=== PATIENT | male | born 1955 | race Caucasian/White ===

== ENCOUNTER 2016-07-22 18:21 | Observation (INO) | payer OTHER ==
--- NOTE | ~2016-07-22 | HP ---
History And Physical [facility] [address] [place]. [address] NAME: MISTY DAVENPORT : 59 STATUS : ADM Dee PAT#: [id number] AGE: 61 ADM/REG DATE : 07/22/16 MR#: [id number] REPORT SERV DATE: 07/23/16 DICTATED BY: JOSE ROLLINS DATE: 07/22/16 REPORT STATUS : Draft TRANSCRIBED BY: MODVanita DATE: 07/22/16 DATE OF ADMISSION: 07/22/2016 POINT OF ENTRY: [facility] Emergency Department. PRIMARY CARE PHYSICIAN: Unknown at this time. PRIMARY DIAL BUFFER: Formerly Dr. Mcgraw. CHIEF COMPLAINT: Dizziness, chest pain, possible syncope. HISTORY OF PRESENT ILLNESS: Mr. Davenport is a 61-year-old gentleman with a history of chronic systolic congestive heart failure with ejection fraction of 35% as well as insulin-dependent diabetes mellitus type 2, coronary artery disease with prior coronary artery bypass grafting, as well as history of left cerebellar cerebrovascular accident who presents to the emergency department today with multiple complaints including chronic dizziness with a recent fall with resulting left-sided shoulder and chest pain. The patient was recently admitted to the Hospitalist Service in the beginning of June for acute CHF exacerbation. At that time, the patient also was reporting some ataxia and MRI of the brain during that admission reportedly showed single punctate focus of restricted diffusion in the right posterior temporal lobe consisted of tiny infarct of four to five millimeter which appear acute. The patient states that during that admission he started to complain to his medical staff of dizziness primarily upon standing as well as with various movements including rolling over in bed. Upon discharge, the patient reports that he has continued to have this episodic periods of dizziness sometimes associated with gait abnormality as well as nausea and vomiting. This morning he awoke, continued to have dizziness, but also experienced the acute onset of left-sided sharp stabbing chest pain. He attempted to stand up. The dizziness became worse, and he fell into a door, striking his left shoulder which he states is a chronically frozen shoulder. He is unclear as to whether or not he passed out, but he thinks that he did. The patient followup with Dr. Mcgraw; however, he tells me that Dr. Mcgraw is now left the practice and he is now in [place]. He is unsure of who is following up with next. His last echocardiogram showed ejection fraction of 35% in June. He states that his last stress test was probably six to seven months ago at [facility] which reportedly was normal at that time, Initial evaluation in the emergency department notable for a blood pressure initially at 190/144, troponin is 0.05. EKG is nonischemic. Labs notable for a blood sugar of 403. Chest x-ray is clear. CT scan of the brain is unremarkable. The patient was given 2 mg of IV Dilaudid for the patient's reports of left shoulder and chest pain in addition to History And Physical [address] [address] NAME: MISTY DAVENPORT : 59 STATUS : ADM Dee PAT#: [id number] AGE: 61 ADM/REG DATE : 07/22/16 MR#: [id number] REPORT SERV DATE: 07/23/16 DICTATED BY: JOSE ROLLINS DATE: 07/22/16 REPORT STATUS : Draft TRANSCRIBED BY: BERNARD DATE: 07/22/16 clonidine and hydralazine for his elevated blood pressure. The patient was subsequently admitted to the Hospitalist Service for further evaluation and management. REVIEW OF SYSTEMS: Comprehensive review of systems otherwise negative unless listed in history of present illness. PREVIOUS MEDICAL HISTORY: 1. Chronic systolic congestive heart failure with an ejection fraction of 35%. 2. Coronary artery disease with prior coronary artery bypass grafting. 3. Uncontrolled insulin-dependent diabetes mellitus, type 2. 4. History of DVT, PE, on Xarelto. 5. History of left cerebrovascular accident. 6. History of peripheral artery disease, status post thrombectomy. 7. Hypertension. 8. Hyperlipidemia. PAST SURGICAL HISTORY: 1. Coronary artery bypass grafting. 2. Left big toe amputation. 3. Peripheral arterial thrombectomy. ALLERGIES: 1. NITROGLYCERIN. 2. MORPHINE. 3. TRAMADOL. 4. GABAPENTIN. HOME MEDICATIONS: 1. Norvasc 10 mg daily. 2. Aspirin 325 mg daily. 3. Lipitor 20 mg daily. 4. Klonopin 0.5 mg at bedtime. 5. Hydrochlorothiazide 25 mg daily. 6. Salol 10/325 one tab daily. 7. Lantus 15 units at bedtime. 8. Insulin sliding scale. 9. Lisinopril 40 mg daily. 10.Lopressor 50 mg b.i.d. 11.Naproxen 220 mg daily p.r.n. 12.Xarelto 20 mg daily. 13.Demadex 20 mg b.i.d. SOCIAL HISTORY: Denies any tobacco, alcohol, or illicits. FAMILY MEDICAL HISTORY: Parents both had coronary artery disease as well as diabetes. History And Physical [address] [place]. [address] NAME: MISTY DAVENPORT : 59 STATUS : ADM Dee PAT#: [id number] AGE: 61 ADM/REG DATE : 07/22/16 MR#: [id number] REPORT SERV DATE: 07/23/16 DICTATED BY: JOSE ROLLINS DATE: 07/22/16 REPORT STATUS : Draft TRANSCRIBED BY: BERNARD DATE: 07/22/16 LABS AND IMAGIN. White count is 8.5, hemoglobin is 15.4, hematocrit is 48.3, and platelet count is 246. 2. Sodium is 140, potassium 3.6, chloride 101, carbon dioxide 26, BUN 14, creatinine 1.35, glucose is 403, calcium is 8.2, magnesium is 1.9. 3. Troponin is 0.05. 4. EKG per my review shows normal sinus rhythm with some left axis deviation as well as some lateral T-wave flattening which is unchanged compared to prior EKGs. 5. Chest x-ray per my review shows no acute cardiopulmonary abnormality. No evidence of any intravascular volume overload at this time. 6. CT scan of the brain shows no acute intracranial pathology shows an old cerebrovascular accident in the left cerebellar region with associated encephalomalacia. PHYSICAL EXAMINATION: VITAL SIGNS: Blood pressure is 190/144, temperature is 98 degrees Fahrenheit, pulse is 98, respiratory rate is 24, saturating 97% on room air. On recheck, it is now 169/94. GENERAL: The patient is awake, alert, in no acute distress. Resting comfortably in bed. He is a well-developed, well-nourished, male. HEENT: Atraumatic and normocephalic. Moist mucous membranes. Pupils are equal, round, reactive to light and accommodation. Extraocular eye movements are intact. There is some very mild lateral gaze deviation and nystagmus. NECK: No jugular venous distention. No carotid bruits. CARDIAC: Regular rate and rhythm. No murmurs, rubs, or gallops. Normal S1, S2. LUNGS: Clear to auscultation bilaterally. No wheezes, rhonchi, or crackles. ABDOMEN: Soft, nontender, nondistended with good bowel sounds. No rebound, guarding, or rigidity. EXTREMITIES: Warm and well perfused. No cyanosis, clubbing, or edema. SKIN: Warm and dry. PSYCH: Affect appropriate. NEURO: Alert and oriented x3. Cranial nerves II through XII are grossly intact. Speech is normal. Gait is not assessed. MUSCULOSKELETAL: Does have some tenderness on palpation over the left anterior chest as well as left anterior and lateral shoulder regions. ASSESSMENT AND PLAN: Mr. Davenport is a 61-year-old gentleman, who presents with multiple complaints including chronic dizziness which sounds to be either central or peripheral vertigo as well as reports of chest and shoulder pain. PROBLEM LIST: 1. Dizziness, likely central versus peripheral vertigo. 2. Hypertensive urgency. 3. Chest pain. 4. Left shoulder pain. 5. Uncontrolled insulin-dependent diabetes mellitus, type 2 with hyperglycemia. 6. Chronic systolic congestive heart failure fracture with ejection fraction of 35%. PLAN: 1. Dizziness. The patient's description of dizziness appears to be vertigo based on his History And Physical [address] [address] NAME: MISTY DAVENPORT : 59 STATUS : ADM Dee PAT#: [id number] AGE: 61 ADM/REG DATE : 07/22/16 MR#: [id number] REPORT SERV DATE: 07/23/16 DICTATED BY: JOSE ROLLINS DATE: 07/22/16 REPORT STATUS : Draft TRANSCRIBED BY: MODVanita DATE: 07/22/16 descriptions. Given his history of cerebellar infarct, this could be central versus possible peripheral in etiology. However, given his recent acute temporal cerebrovascular accident in June as well as multiple vascular risk factors, I will schedule him for an MRI to evaluate for any potential new cerebrovascular accidents, however, these symptoms have been ongoing now for almost greater than 30 days. 2. Hypertensive urgency. Continue the patient's home medication, IV hydralazine p.r.n., as well as pain control. 3. Uncontrolled insulin-dependent diabetes mellitus, type 2 with hyperglycemia. Continue the patient's home long-acting insulin. Place him on level 3 insulin sliding scale. Check hemoglobin A1c. He has received some IV insulin here in the emergency room to correct his hyperglycemia. 4. Chest pain, unclear etiology. It sounds atypical in nature, especially since it is reproducible on palpation of the left anterior chest. Given his risk factors and history, we will trend out cardiac enzymes and schedule him for a stress test as it appears it has been at least greater than six months since his last stress test. 5. Chronic systolic congestive heart failure with an ejection fraction of 35%. The patient currently appears euvolemic at this time. We will continue patient's home Demadex, followup BNP. 6. Left shoulder and chest pain. This appears to be musculoskeletal in etiology as well as based on examination, we will check an x-ray of the left shoulder given his reports of pain as well as recent trauma to the area. 7. DVT prophylaxis. The patient is on Xarelto. CODE STATUS: The patient wished to be full code. JCB/MODL Jose Rollins MD / [id number] CC: Mele Gomes MD
--- NOTE | ~2016-07-22 | CN ---
Consultation Report [facility] [address] [place]. [address] NAME: MISTY PAREDES : 59 STATUS : ADM Dee PAT#: [id number] AGE: 61 ADM/REG DATE : 07/22/16 MR#: [id number] REPORT SERV DATE: 07/23/16 DICTATED BY: MARIALUISA SMITH JR. DATE: 07/23/16 REPORT STATUS : Draft TRANSCRIBED BY: MODL DATE: 07/23/16 CONSULTATION DATE OF CONSULTATION: 07/23/2016 REFERRING PHYSICAN: Una Andrea. CHIEF COMPLAINT: Dizziness, chest pain. HISTORY OF PRESENT ILLNESS: The patient is a 61-year-old white male, patient of Dr. Alexys Mcgraw, with history of known epicardial coronary artery disease status post prior CAB approximately one year ago with known LV systolic dysfunction and diastolic dysfunction, chronic; ejection fraction of approximately 40-45% with mild mitral insufficiency, mild mitral stenosis and mildly elevated pulmonary pressures, who also has known lypb-ez-kupjxiah orthostatic hypertension and had been well until yesterday when he awoke from sleep with mid substernal chest pain and abrupt onset dizziness, worse when rolling from one side of the bed to the other. He abruptly sit up and then passed out striking his left shoulder on furniture. REVIEW OF SYSTEMS: A 10-point review of systems is otherwise unremarkable for recent fevers, chills, nausea, vomiting, GI or complaints, loose stools, melena, hematochezia, etc. Troponin serum markers have been borderline. ALLERGIES: MORPHINE, TRAMADOL, AND GABAPENTIN. MEDICATIONS: Include amlodipine 10 mg daily, aspirin 325 mg daily, atorvastatin 20 mg at bedtime, Klonopin 0.5 mg at bedtime, hydrochlorothiazide 25 mg daily, [place] 10/325 combination p.r.n. pain, insulin glargine and regular, lisinopril 40 mg daily, metoprolol tartrate 50 mg b.i.d., Aleve 220 mg daily as needed, Rivaroxaban 20 mg daily, torsemide 20 mg twice daily. PAST MEDICAL HISTORY: Notable for history of known epicardial coronary artery disease, prior CVA, prior TIA, hypertension, hyperlipidemia, obesity, chronic systolic and diastolic heart failure, history of peripheral artery disease, osteomyelitis of the left big toe. PAST SURGICAL HISTORY: Notable for prior CAB with four-vessel in October 2014, left big toe amputation, stent right leg in 2014. SOCIAL HISTORY: Notable for absent current tobacco or ethanol abuse, although he has smoked in the past. FAMILY HISTORY: Notable for heart disease. Consultation Report [facility] [address] [place]. [address] NAME: MISTY PAREDES : 59 STATUS : ADM Dee PAT#: [id number] AGE: 61 ADM/REG DATE : 07/22/16 MR#: [id number] REPORT SERV DATE: 07/23/16 DICTATED BY: MARIALUISA SMITH JR. DATE: 07/23/16 REPORT STATUS : Draft TRANSCRIBED BY: BERNARD DATE: 07/23/16 PHYSICAL EXAMINATION: VITAL SIGNS: Blood pressure is 160/80, pulse is 72 and regular, respirations 14. The patient is afebrile. HEENT: Unremarkable. NECK: Supple. Jugular venous pressures are mildly elevated. CARDIOVASCULAR: Regular rate and rhythm. S4. No S3. 1/6 holosystolic murmur. LUNGS: Clear anteriorly, diminished in the bases posteriorly. ABDOMEN: Soft. Normoactive bowel sounds. Obese. EXTREMITIES: 1+ with no pedal edema. NEUROLOGIC: He is grossly intact. LABORATORY DATA: EKG is notable for sinus rhythm, ventricular rate of 75 beats per minute with LVH, poor R-wave progression, cannot exclude old anterior TN, age undetermined, left anterior fascicular block. No acute ischemic changes with only nonspecific ST changes noted laterally. Troponin 0.05. Repeat troponin 0.06. MRI of the head and neck pending. Sodium 140, potassium 3.6, chloride 101, CO2 of 26, BUN 14, creatinine 1.35, glucose of 103. H and H of 15.4 and 40.3, white count of 8.5, platelet count of 246,000. INR of 1. BNP of 533. IMPRESSION: 1. A 61-year-old white male, patient of [facility] with 24-hour history of dizziness, orthostasis and mid sternal chest pain which is now resolved with episodes of nausea and vomiting after intravenous contrast following MRI of the head earlier this morning. 2. Uncontrolled diabetes mellitus. 3. Known mild LV systolic dysfunction with ejection fraction as above with mitral valvular disease and mildly elevated pulmonary pressures. 4. Atherosclerotic cerebrovascular disease with prior cerebrovascular accident. 5. Wpgs-jw-jtfrztwt chronic kidney disease. 6. Borderline troponin of unknown significance with only chronic ECG changes. PLAN/RECOMMENDATIONS: 1. MRI of the brain pending. 2. Nuclear stress testing in a.m. 3. Noted VINNY inhibition on hold. Diuretics on hold. 4. Agree with H2 blockers versus PPI. 5. We will follow. Nitrate allergy noted, we would suggest Ranexa. /MODL Marialuisa Smith Jr., M.D. / [id number] Consultation Report [address] [address] NAME: MSITY PAREDES EDHONEY : 59 STATUS : ADM Dee PAT#: [id number] AGE: 61 ADM/REG DATE : 07/22/16 MR#: [id number] REPORT SERV DATE: 07/23/16 DICTATED BY: MARIALUISA SMITH JR. DATE: 07/23/16 REPORT STATUS : Draft TRANSCRIBED BY: BERNARD DATE: 07/23/16 CC: MD Zully Murphy Amanda M
--- NOTE | ~2016-07-22 | DS ---
Discharge Summary [facility] [address] [place]. [address] NAME: MISTY PAREDES : 59 STATUS : DIS Dee PAT#: [id number] AGE: 61 ADM/REG DATE : 07/22/16 MR#: [id number] REPORT SERV DATE: 07/26/16 DICTATED BY: ZEKE MARIANO DATE: 07/25/16 REPORT STATUS : Draft TRANSCRIBED BY: BERNARD DATE: 07/25/16 ADMISSION DATE: 07/22/2016 DISCHARGE DATE: 07/25/2016 DISCHARGE DIAGNOSES: 1. Dizziness secondary to dehydration. 2. Ysy-RZ-itjnmyg elevation myocardial infarction type 2. 3. Hypertension. 4. Chronic systolic heart failure. 5. Coronary artery disease, history of CABG. 6. History of deep vein thrombosis/pulmonary embolus on Xarelto. 7. History of cerebrovascular accident. 8. Hyperlipidemia. 9. Acute on chronic kidney disease stage 3. 10.Left shoulder pain. 11.Insulin-dependent diabetes type 2. DISCHARGE MEDICATIONS: Include: 1. Norvasc 10 mg p.o. daily. 2. Aspirin 325 mg p.o. daily. 3. Lipitor 80 mg p.o. at bedtime. 4. Pepcid 20 mg p.o. b.i.d. 5. Lidoderm 5% topical patch topical daily. 6. Ranexa 500 mg p.o. b.i.d. 7. Lopressor 50 mg p.o. b.i.d. 8. Xarelto 20 mg p.o. daily. 9. Klonopin 0.5 mg p.o. at bedtime. 10.Hydralazine 25 mg p.o. every eight hours p.r.n. systolic blood pressure greater than 170. 11.Levemir 15 units subcu b.i.d. 12.Insulin regular per sliding scale before lunch, breakfast, and supper. 13.[place]en 5/325 one tab p.o. every four hours p.r.n. 14.Demadex 20 mg p.o. b.i.d., restart on 07/27/2016. 15.Lisinopril 40 mg p.o. daily. 16.Hydrochlorothiazide 25 mg p.o. daily p.r.n. swelling. DISPOSITION AND FOLLOWUP: The patient is medically stable for discharge. FOLLOWUP: Follow up with primary care physician in one week. Follow up with Cardiology as directed. HISTORY AND PHYSICAL: Per initial assessment. DISCHARGE VITALS: Temperature 97.9, heart rate 72, blood pressure 118/58, respiratory rate 20, O2 saturation 95 on room air. Discharge Summary [facility] [address] [place]. [address] NAME: MISTY PAREDES : 59 STATUS : DIS Dee PAT#: [id number] AGE: 61 ADM/REG DATE : 07/22/16 MR#: [id number] REPORT SERV DATE: 07/26/16 DICTATED BY: ZEKE MARIANO DATE: 07/25/16 REPORT STATUS : Draft TRANSCRIBED BY: BERNARD DATE: 07/25/16 DISCHARGE LABS: WBC of 8.8, hemoglobin 13.1, hematocrit 38.3, platelets 236. Sodium 139, potassium 3.5, chloride 104, bicarb 27, BUN 27, creatinine 1.25, glucose 139. Troponin 0.05, next 0.06, next 0.04. Vitamin B12 of 267, folate 8.9. Recommend primary care physician to get a methylmalonic acid for further evaluation for true vitamin B12 deficiency. IMAGIN. CT of the head without contrast, impression:. a. No acute intracranial pathology identified. b. Very mild diffuse cerebral involutional changes. c. Encephalomalacia, inferior peripheral left cerebellar hemispheres consistent with old CVA. 2. Chest x-ray, impression, improved aeration at the lung bases compared to 06/24/2016. 3. MRA of the head, impression:. a. Encephalomalacia, left inferior cerebellum. No acute infarct or other acute finding demonstrated in the brain. b. 60% stenosis of the distal ICA in the cavernous portion. c. 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 d. Congenital variant small right A1 segment. Otherwise negative CTA of the po[place] of Mcgraw. Atherosclerotic irregularity of bilateral ICAs proximally without stenosis. 4. MRI of the brain, impression, no acute infarct. 5. Shoulder, left, x-ray, impression, degenerative changes. No acute abnormality. 6. Stress test, impression, imaging demonstrated inferior infarction without ischemia. Post infusion LVEF 43%. Overall intermediate risk vasodilatory stress test due to left ventricle dysfunction. No electrographic changes diagnostic of ischemia were noted. HOSPITAL COURSE: This is a 61-year-old man with past medical history of chronic systolic heart failure/ischemic cardiomyopathy, who comes into the ED complaining of dizziness. The patient was admitted for TIA-type symptoms and evaluation. Dizziness resolved during the course of the hospitalization. MRI of the head did not show any acute CVA. The patient was noted to have elevated troponins in the setting of uncontrolled hypertension and acute on chronic renal insufficiency. Consulted Cardiology for NSTEMI type 2. A stress test done as described above. The patient was placed on Ranexa and recommendations were for continued medical management. The patient to follow up with Dr. Smith in one week post hospitalization. The patient's statin was increased to 80 mg p.o. at bedtime. During the course of the hospitalization, held hydrochlorothiazide, Demadex, and VINNY inhibitor while patient was rehydrated very gently. Renal function back to baseline at discharge. The patient will be instructed to restart VINNY inhibitor and restart Demadex as directed. Can take hydrochlorothiazide p.r.n. swelling. The patient was continued on Xarelto throughout the course of the hospitalization. The patient will be discharged with p.o. hydralazine p.r.n. for systolic greater than 170. Can follow up with primary care physician in one week and re-titrate antihypertensive if needed. The patient was noted to have uncontrolled insulin diabetes on admission. Insulin was titrated and as described above, the patient will take Levemir, which was increased to b.i.d. instead of once daily. Continue further long-term care by primary care physician. On discharge, the patient is asymptomatic. Denies any chest pain, dizziness, shortness of breath. The patient wanted to go home. Discharge Summary [place] [id number] [facility] [place]. [address] NAME: MISTY PAREDES : 59 STATUS : DIS Dee PAT#: [id number] AGE: 61 ADM/REG DATE : 07/22/16 MR#: [id number] REPORT SERV DATE: 07/26/16 DICTATED BY: ZEKE MARIANO DATE: 07/25/16 REPORT STATUS : Draft TRANSCRIBED BY: MODL DATE: 07/25/16 Vitals stable. Instructed to take all medications as described above. Follow up with primary care physician in one week and Cardiology in one week as well. Further management at that time. Total time for discharge planning, 35 minutes. ANITHA/BERNARD Mele Gomes MD / [id number] CC: MD SWATI Murphy
[2016-07-22 17:04] LABS: BASOPHILS 0.2 %; BASOPHILS ABSOLUTE 0.02 10/3/uL (0.0-0.16); EOSINOPHILS 1.3 %; EOSINOPHILS ABSOLUTE 0.11 10/3/uL (0.0-0.53); ER CBC TAT 0 Hrs 08 Mins; HEMATOCRIT 48.3 % (40.0-51.0); HEMOGLOBIN 15.4 g/dL (13.6-17.8); IMMATURE GRANULOCYTES 0.2 %; IMMATURE GRANULOCYTES ABSOLUTE 0.02 10/3/uL (0.0-0.11); LYMPHOCYTES 21.5 %; LYMPHOCYTES ABSOLUTE 1.83 10/3/uL (0.67-4.30); MANUAL DIFF NO %; MEAN CORPUS HGB CONC 31.9 g/dL (32.0-36.0); MEAN CORPUSCULAR HEMOGLOB 30.3 pg (26.0-34.0); MEAN CORPUSCULAR VOLUME 94.9 fL (80-100); MEAN PLATELET VOLUME 12.5 fL (9.2-13.0); MONOCYTES 6.5 %; MONOCYTES ABSOLUTE 0.55 10/3/uL (0.21-1.20); NEUTROPHILS 70.3 %; NEUTROPHILS ABSOLUTE 5.99 10/3/uL (2.02-8.40); PLATELET COUNT 246 10/3/uL (150-400); RBC DISTRIBUTION WIDTH 14.6 % (12.0-16.0); RED CELL COUNT 5.09 10/6/uL (4.7-6.1); WHITE BLOOD CELLS 8.5 10/3/uL (4.5-10.5)
[2016-07-22 17:13] LABS: PARTIAL THROMBO TIME 26.3 SEC (22.5-37.2); PROTIME (NOT ORD) 12.8 SEC (12.0-14.5)
[2016-07-22 17:21] LABS: CALCIUM, SERUM 8.2 MG/DL (8.5-10.4); CHLORIDE, SERUM 101 MMOL/L (96-112); CREATININE 1.35 MG/DL (0.70-1.30); GFR AFRICAN AMERICAN 66 ML/MIN (>=60); GFR NON AFRICAN AMERICAN 57 ML/MIN (>=60); POTASSIUM, SERUM 3.6 MMOL/L (3.5-5.3); SODIUM, SERUM 140 MMOL/L (135-148)
[2016-07-22 17:22] LABS: BUN (BLOOD UREA NITROGEN) 14 MG/DL (6-23); CHEST PAIN PROFILE TAT 0 Hrs 26 Mins; CO2 (CARBON DIOXIDE) 26 MMOL/L (24-34); GLUCOSE, SERUM 403 MG/DL (60-99); TROPONIN I 0.05 NG/ML (<0.05)
[~2016-07-22 18:21] MED LIST: ADVIL PO; ALBUTEROL NEB 0.083% INH; ALEVE220 MG PO; APRES25 PO; ASAB PO; ATV.5 PO; C5 PO; CARDCD240 PO; COUMADIN6 MG PO; DEMA20 PO; DSS PO; HYDROCHLOROT25 MG PO; INSNOVR; INVOKANA100 MG PO; KDUR20 PO; KLONO5 PO; L40 PO; LANTUSCART SC; LEVEMIR SC; LIPITOR20 PO; LIPITOR40 PO; LIPITOR80 MG PO; LISINOPRIL40 MG PO; LOP100 PO; LOP25 PO; LOP50 PO; LOVENOX150 SQ; MAGOX4 PO; MIRALAXPKT PO; MSCONT15 PO; NORCO1 TA1 PO; NORCO1 TA2 PO; NORCO1 TAB PO; NORV10 PO; NOVOLOG SC; PERCOCET1 TA4 PO; PLAVIX PO; PR12.5 PO; PRAVACHOL40 MG PO; PRIN20 PO; PROAIR HFA INH; REM15 PO; SPIRIVA INH; TOPROL XL200 MG PO; VITD PO; XARELTO20 MG PO; XENADERM TOP
[2016-07-22] MEDS ORDERED: DEMA20 PO (18:58)
[2016-07-22] MEDS ORDERED: LOP50 PO (18:58)
[2016-07-22] MEDS ORDERED: ASABAYER PO (18:58)
[2016-07-22] MEDS ORDERED: XARELTO20 MG PO (18:59)
[2016-07-22] MEDS ORDERED: NORV10 PO (19:00)
[2016-07-22] MEDS ORDERED: LISINOPRIL40 MG PO (19:00)
[2016-07-22] MEDS ORDERED: LIPITOR20 PO (19:01)
[2016-07-22] MEDS ORDERED: HYDROCHLOROT25 MG PO (19:01)
[2016-07-22] MEDS ORDERED: KLONO5 PO (19:02)
[2016-07-22] MEDS ORDERED: INSNOVR SC (19:05)
[2016-07-22] MEDS ORDERED: LANTUSCART SC (19:06)
[2016-07-22] MEDS ORDERED: NORCO1 TAB PO (19:07)
[2016-07-22] MEDS ORDERED: ALEVE220 MG PO (19:07)
[2016-07-23 02:25] LABS: CHOL/HDL RATIO(NOT ORDER) 7.9 (0-5); CHOLESTEROL 268 MG/DL (< 200); HDL CHOLESTEROL 34 MG/DL (> 39); NON-HDL CHOLESTEROL 234 MG/DL (< 160)
[2016-07-23 02:31] LABS: CK-MB 2.5 NG/ML; CPK 113 U/L (0-200); FOLATE 8.9 NG/ML (>5.2); TRIGLYCERIDE 465 MG/DL (< 150); TROPONIN I 0.06 NG/ML (<0.05)
[2016-07-23 08:09] LABS: GLYCOHEMOGLOBIN (HbA1c) 10.7 % (4.7-6.1)
[2016-07-23 10:24] LABS: WBC (NOT ORDERED) (RFLEX) 0 (0-5)
[2016-07-23 10:37] LABS: CK-MB 2.1 NG/ML; CPK 104 U/L (0-200); TROPONIN I 0.04 NG/ML (<0.05)
[2016-07-23 10:37] LABS: ASCORBIC ACID (UR NOT ORDER) NEG (NEG); BILIRUBIN, URINE NEGATIVE (NEG); KETONE, URINE NEGATIVE (NEG); LEUKOCYTE ESTERASE(NOT OR NEG (NEG)
[2016-07-23 14:28] LABS: CHLORIDE, SERUM 104 MMOL/L (96-112); CO2 (CARBON DIOXIDE) 25 MMOL/L (24-34); GFR AFRICAN AMERICAN 69 ML/MIN (>=60); GFR NON AFRICAN AMERICAN 60 ML/MIN (>=60); POTASSIUM, SERUM 4.2 MMOL/L (3.5-5.3); SODIUM, SERUM 140 MMOL/L (135-148)
[2016-07-23 14:29] LABS: BUN (BLOOD UREA NITROGEN) 20 MG/DL (6-23); GLUCOSE, SERUM 320 MG/DL (60-99)
[2016-07-23 17:35] LABS: CK-MB 2.2 NG/ML; CPK 107 U/L (0-200); TROPONIN I 0.04 NG/ML (<0.05)
[2016-07-24 05:32] LABS: CHLORIDE, SERUM 105 MMOL/L (96-112); CO2 (CARBON DIOXIDE) 27 MMOL/L (24-34); CREATININE 1.36 MG/DL (0.70-1.30); GFR AFRICAN AMERICAN 66 ML/MIN (>=60); GFR NON AFRICAN AMERICAN 57 ML/MIN (>=60); POTASSIUM, SERUM 3.5 MMOL/L (3.5-5.3); SODIUM, SERUM 141 MMOL/L (135-148)
[2016-07-24 05:34] LABS: BUN (BLOOD UREA NITROGEN) 28 MG/DL (6-23); GLUCOSE, SERUM 116 MG/DL (60-99)
[2016-07-24 06:28] LABS: BASOPHILS 0.2 %; BASOPHILS ABSOLUTE 0.02 10/3/uL (0.0-0.16); EOSINOPHILS ABSOLUTE 0.11 10/3/uL (0.0-0.53); HEMOGLOBIN 13.1 g/dL (13.6-17.8); IMMATURE GRANULOCYTES 0.2 %; IMMATURE GRANULOCYTES ABSOLUTE 0.02 10/3/uL (0.0-0.11); LYMPHOCYTES 21.5 %; MEAN CORPUSCULAR HEMOGLOB 29.6 pg (26.0-34.0); MEAN PLATELET VOLUME 11.1 fL (9.2-13.0); MONOCYTES 4.7 %; MONOCYTES ABSOLUTE 0.53 10/3/uL (0.21-1.20); NEUTROPHILS 72.4 %; NEUTROPHILS ABSOLUTE 8.09 10/3/uL (2.02-8.40); PLATELET COUNT 251 10/3/uL (150-400); RBC DISTRIBUTION WIDTH 12.9 % (12.0-16.0); RED CELL COUNT 4.43 10/6/uL (4.7-6.1); WHITE BLOOD CELLS 11.2 10/3/uL (4.5-10.5)
[2016-07-24 06:29] LABS: HEMATOCRIT 38.2 % (40.0-51.0); MANUAL DIFF NO %; MEAN CORPUS HGB CONC 34.3 g/dL (32.0-36.0); MEAN CORPUSCULAR VOLUME 86.2 fL (80-100)
[2016-07-25 04:49] LABS: BASOPHILS 0.2 %; BASOPHILS ABSOLUTE 0.02 10/3/uL (0.0-0.16); EOSINOPHILS 1.7 %; EOSINOPHILS ABSOLUTE 0.15 10/3/uL (0.0-0.53); HEMATOCRIT 38.3 % (40.0-51.0); HEMOGLOBIN 13.1 g/dL (13.6-17.8); IMMATURE GRANULOCYTES 0.1 %; IMMATURE GRANULOCYTES ABSOLUTE 0.01 10/3/uL (0.0-0.11); LYMPHOCYTES 26.4 %; LYMPHOCYTES ABSOLUTE 2.33 10/3/uL (0.67-4.30); MEAN CORPUS HGB CONC 34.2 g/dL (32.0-36.0); MEAN CORPUSCULAR HEMOGLOB 29.4 pg (26.0-34.0); MEAN CORPUSCULAR VOLUME 86.1 fL (80-100); MEAN PLATELET VOLUME 10.7 fL (9.2-13.0); MONOCYTES 7.4 %; MONOCYTES ABSOLUTE 0.65 10/3/uL (0.21-1.20); NEUTROPHILS 64.2 %; NEUTROPHILS ABSOLUTE 5.66 10/3/uL (2.02-8.40); PLATELET COUNT 236 10/3/uL (150-400); RBC DISTRIBUTION WIDTH 12.7 % (12.0-16.0); RED CELL COUNT 4.45 10/6/uL (4.7-6.1); WHITE BLOOD CELLS 8.8 10/3/uL (4.5-10.5)
[2016-07-25 04:50] LABS: MANUAL DIFF NO %
[2016-07-25 04:59] LABS: BUN (BLOOD UREA NITROGEN) 27 MG/DL (6-23); CALCIUM, SERUM 7.8 MG/DL (8.5-10.4); CHLORIDE, SERUM 104 MMOL/L (96-112); CO2 (CARBON DIOXIDE) 27 MMOL/L (24-34); CREATININE 1.25 MG/DL (0.70-1.30); GFR AFRICAN AMERICAN 73 ML/MIN (>=60); GFR NON AFRICAN AMERICAN 63 ML/MIN (>=60); GLUCOSE, SERUM 139 MG/DL (60-99); POTASSIUM, SERUM 3.5 MMOL/L (3.5-5.3); SODIUM, SERUM 139 MMOL/L (135-148)
[2016-07-25] MEDS ORDERED: LIPITOR80 MG PO (12:57)
[2016-07-25] MEDS ORDERED: PEP20 PO (12:58)
[2016-07-25] MEDS ORDERED: LIDODERM TOP (13:00)
[2016-07-25] MEDS ORDERED: RAN500 PO (13:01)
[2016-07-25] MEDS ORDERED: LEVEMIR SC (13:04)
[2016-07-25] MEDS ORDERED: APRES25 (13:13)
== END 2016-07-25 15:27 | disposition home or self-care (01) ==
LOC: ER 18:21 → CDU1 21:05 → CDU2 07-24 23:45
PROVIDERS: Emergency Medicine; Internal Medicine
DX: R42 Dizziness and giddiness (principal); E86.0 Dehydration; I21.4 Non-ST elevation (NSTEMI) myocardial infarction; I13.0 Hypertensive heart and chronic kidney disease with heart failure and stage 1 through stage 4 chronic kidney disease, or unspecified chronic kidney disease; I50.22 Chronic systolic (congestive) heart failure; I25.10 Atherosclerotic heart disease of native coronary artery without angina pectoris; N18.3 Chronic kidney disease, stage 3 (moderate); N17.9 Acute kidney failure, unspecified; E78.5 Hyperlipidemia, unspecified; E11.22 Type 2 diabetes mellitus with diabetic chronic kidney disease; Z95.1 Presence of aortocoronary bypass graft; Z86.73 Personal history of transient ischemic attack (TIA), and cerebral infarction without residual deficits; Z98.890 Other specified postprocedural states; Z88.8 Allergy status to other drugs, medicaments and biological substances; Z79.82 Long term (current) use of aspirin; Z79.4 Long term (current) use of insulin; Z79.899 Other long term (current) drug therapy
CPT/HCPCS: 70450; 70544; 70548; 70551-52; 71020; 73030-LT; 78452; 80048; 80061; 81001; 82550; 82553; 82607; 82746; 82962; 83036; 83735; 83880; 84484; 85025; 85610; 85730; 93005; 93017; 96374; 96375; 96376; 99285; A9270-GY; A9502; A9577; G0378; J0153; J0360; J1170; J2405; J2550

== ENCOUNTER 2016-09-05 09:28 | Emergency (ER) | payer OTHER ==
[~2016-09-05 09:28] MED LIST changes: +APRES25; +ASABAYER PO; +INSNOVR SC; +LIDODERM TOP; +PEP20 PO; +RAN500 PO
[2016-09-05 10:37] LABS: BASOPHILS 0.1 %; BASOPHILS ABSOLUTE 0.01 10/3/uL (0.0-0.16); EOSINOPHILS 1.3 %; EOSINOPHILS ABSOLUTE 0.11 10/3/uL (0.0-0.53); HEMOGLOBIN 15.1 g/dL (13.6-17.8); IMMATURE GRANULOCYTES 0.2 %; IMMATURE GRANULOCYTES ABSOLUTE 0.02 10/3/uL (0.0-0.11); LYMPHOCYTES 21.3 %; LYMPHOCYTES ABSOLUTE 1.86 10/3/uL (0.67-4.30); MEAN CORPUS HGB CONC 34.7 g/dL (32.0-36.0); MEAN CORPUSCULAR HEMOGLOB 29.8 pg (26.0-34.0); MEAN CORPUSCULAR VOLUME 85.8 fL (80-100); MEAN PLATELET VOLUME 10.4 fL (9.2-13.0); MONOCYTES 8.2 %; MONOCYTES ABSOLUTE 0.72 10/3/uL (0.21-1.20); NEUTROPHILS 68.9 %; NEUTROPHILS ABSOLUTE 6.02 10/3/uL (2.02-8.40); PLATELET COUNT 227 10/3/uL (150-400); RBC DISTRIBUTION WIDTH 13.6 % (12.0-16.0); RED CELL COUNT 5.07 10/6/uL (4.7-6.1); WHITE BLOOD CELLS 8.7 10/3/uL (4.5-10.5)
[2016-09-05 10:39] LABS: HEMATOCRIT 43.5 % (40.0-51.0); MANUAL DIFF NO %
[2016-09-05 10:45] LABS: PARTIAL THROMBO TIME 27.8 SEC (22.5-37.2); PROTIME (NOT ORD) 12.9 SEC (12.0-14.5)
[2016-09-05 10:54] LABS: BUN (BLOOD UREA NITROGEN) 12 MG/DL (6-23); CALCIUM, SERUM 8.7 MG/DL (8.5-10.4); CHEST PAIN PROFILE TAT 0 Hrs 21 Mins; CHLORIDE, SERUM 107 MMOL/L (96-112); CO2 (CARBON DIOXIDE) 29 MMOL/L (24-34); CREATININE 1.09 MG/DL (0.70-1.30); GFR AFRICAN AMERICAN 86 ML/MIN (>=60); GFR NON AFRICAN AMERICAN 74 ML/MIN (>=60); GLUCOSE, SERUM 215 MG/DL (60-99); POTASSIUM, SERUM 3.5 MMOL/L (3.5-5.3); SODIUM, SERUM 143 MMOL/L (135-148); TROPONIN I 0.05 NG/ML (<0.05)
== END 2016-09-05 13:10 | disposition home or self-care (01) ==
LOC: ER 09:28
PROVIDERS: Emergency Medicine
DX: M25.511 Pain in right shoulder (principal); M25.512 Pain in left shoulder; G89.29 Other chronic pain; R79.89 Other specified abnormal findings of blood chemistry; J90 Pleural effusion, not elsewhere classified; I50.9 Heart failure, unspecified; E11.22 Type 2 diabetes mellitus with diabetic chronic kidney disease; N18.9 Chronic kidney disease, unspecified; Z86.73 Personal history of transient ischemic attack (TIA), and cerebral infarction without residual deficits; Z95.1 Presence of aortocoronary bypass graft; Z88.5 Allergy status to narcotic agent; Z88.8 Allergy status to other drugs, medicaments and biological substances; Z79.82 Long term (current) use of aspirin; Z79.4 Long term (current) use of insulin; Z79.899 Other long term (current) drug therapy
CPT/HCPCS: 70450; 71020; 71110; 80048; 83735; 83880; 84484; 85025; 85610; 85730; 99285; A9270-GY

== ENCOUNTER 2016-10-16 18:52 | Emergency (ER) | payer OTHER ==
[2016-10-16 17:02] LABS: BASOPHILS 0.1 %; BASOPHILS ABSOLUTE 0.01 10/3/uL (0.0-0.16); EOSINOPHILS 0.9 %; EOSINOPHILS ABSOLUTE 0.08 10/3/uL (0.0-0.53); HEMATOCRIT 45.1 % (40.0-51.0); HEMOGLOBIN 15.8 g/dL (13.6-17.8); IMMATURE GRANULOCYTES 0.2 %; IMMATURE GRANULOCYTES ABSOLUTE 0.02 10/3/uL (0.0-0.11); LYMPHOCYTES 23.2 %; LYMPHOCYTES ABSOLUTE 2.07 10/3/uL (0.67-4.30); MEAN CORPUSCULAR HEMOGLOB 29.5 pg (26.0-34.0); MEAN CORPUSCULAR VOLUME 84.3 fL (80-100); MEAN PLATELET VOLUME 10.6 fL (9.2-13.0); MONOCYTES 7.1 %; MONOCYTES ABSOLUTE 0.63 10/3/uL (0.21-1.20); NEUTROPHILS 68.5 %; NEUTROPHILS ABSOLUTE 6.12 10/3/uL (2.02-8.40); PLATELET COUNT 223 10/3/uL (150-400); RBC DISTRIBUTION WIDTH 13.3 % (12.0-16.0); RED CELL COUNT 5.35 10/6/uL (4.7-6.1); WHITE BLOOD CELLS 8.9 10/3/uL (4.5-10.5)
[2016-10-16 17:04] LABS: MANUAL DIFF NO %
[2016-10-16 17:10] LABS: INTERNATIONAL NORMAL RATI 1.1 UNITS (-); PARTIAL THROMBO TIME 26.6 SEC (22.5-37.2); PROTIME (NOT ORD) 13.7 SEC (12.0-14.5)
[2016-10-16 17:19] LABS: BUN (BLOOD UREA NITROGEN) 11 MG/DL (6-23); CALCIUM, SERUM 8.2 MG/DL (8.5-10.4); CHLORIDE, SERUM 104 MMOL/L (96-112); CO2 (CARBON DIOXIDE) 29 MMOL/L (24-34); CREATININE 0.95 MG/DL (0.70-1.30); GFR AFRICAN AMERICAN 101 ML/MIN (>=60); GFR NON AFRICAN AMERICAN 87 ML/MIN (>=60); GLUCOSE, SERUM 236 MG/DL (60-99); SODIUM, SERUM 141 MMOL/L (135-148)
[2016-10-16 17:23] LABS: CHEST PAIN PROFILE TAT 0 Hrs 25 Mins; TROPONIN I 0.13 NG/ML (<0.05)
== END 2016-10-16 20:54 | disposition home or self-care (01) ==
LOC: ER 18:52
PROVIDERS: Emergency Medicine
DX: R55 Syncope and collapse (principal); R11.2 Nausea with vomiting, unspecified; E87.6 Hypokalemia; R10.9 Unspecified abdominal pain; I13.0 Hypertensive heart and chronic kidney disease with heart failure and stage 1 through stage 4 chronic kidney disease, or unspecified chronic kidney disease; E11.22 Type 2 diabetes mellitus with diabetic chronic kidney disease; N18.9 Chronic kidney disease, unspecified; I50.9 Heart failure, unspecified; Z95.1 Presence of aortocoronary bypass graft; Z86.73 Personal history of transient ischemic attack (TIA), and cerebral infarction without residual deficits; Z88.6 Allergy status to analgesic agent; Z88.8 Allergy status to other drugs, medicaments and biological substances; Z79.82 Long term (current) use of aspirin; Z79.899 Other long term (current) drug therapy; Z79.4 Long term (current) use of insulin
CPT/HCPCS: 71010; 73552-LT; 74176; 80048; 82962; 83735; 84484; 85025; 85610; 85730; 93005; 96365; 96375; 99285; A9270-GY; J2405; J2800